=== PATIENT | male | born 1965 | race American Indian/Alaskan Native ===

== ENCOUNTER 2020-05-05 04:37 | Emergency (ER) | payer SELFPAY ==
--- NOTE | 2020-05-05 05:39 | XRay Report ---
XR chest routine 2V INDICATION / CLINICAL INFORMATION: chest pain COMPARISON: None available. FINDINGS: SUPPORT DEVICES: None. HEART / MEDIASTINUM: No significant abnormality. LUNGS / PLEURA: Lungs are clear. Costophrenic sulci are sharp. No pneumothorax. ADDITIONAL FINDINGS: No significant additional findings. IMPRESSION: 1. No acute findings. Signer Name: Justin Avendano MD Signed: 05/05/2020 5:35 AM Workstation Name: [id number]
[2020-05-05 05:43] LABS: Basophils % (Auto) 0.3 % (0.0-1.8); Eosinophils # (Auto) 0.1 K/mm3 (0.0-0.4); Hematocrit 42.7 % (35.5-45.6); Hemoglobin 14.3 gm/dl (11.8-15.2); Lymphocytes # (Auto) 2.2 K/mm3 (1.2-5.4); Lymphocytes % (Auto) 47.5 % (13.4-35.0); Mean Corpuscular HGB Conc 33 % (32-34); Mean Corpuscular Volume 94 fl (84-94); Monocytes # (Auto) 0.5 K/mm3 (0.0-0.8); Monocytes % (Auto) 11.6 % (0.0-7.3); Platelet Count 234 K/mm3 (140-440); Red Blood Count 4.55 M/mm3 (3.65-5.03); Red Cell Distribution Width 13.2 % (13.2-15.2)
[2020-05-05 06:03] LABS: Alanine Aminotransferase 45 units/L (7-56); Albumin 4.4 g/dL (3.9-5); BUN/Creatinine Ratio 11; Blood Urea Nitrogen 9 mg/dL (9-20); Calcium 8.9 mg/dL (8.4-10.2); Hemolysis Index 0
--- NOTE | 2020-05-05 08:24 | Emergency Department Report ---
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 He had a sudden onset of gas-like left chest pain. He states "it gets like that when I am stressed out.". He states that he has a chest pain "all this time". Pain radiated to his forearm. The pain lasted for several minutes. He was seated at rest when it occurred. He drove himself to the emergency department. He had nausea. He denies shortness of breath. Denies syncope. His father had history of "clogged" heart issues. Mother was healthy. Siblings are healthy. MD Complaint: chest pain -: Sudden, This morning Onset: during rest Pain Radiation: none Severity: moderate Severity scale (0 -10): 7 Quality: dull Consistency: now resolved Improves With: nothing Worsens With: nothing re: nausea Treatments Prior to Arrival: none Aspirin use within the Past 7 Days: (0) No - Related Data Allergies Allergy/AdvReac Type Severity Reaction Status Date / Time No Known Allergies Allergy Unverified 05/05/20 04:56 Heart Score - HEART Score History: Slightly suspicious EKG: Normal Age: 45-65 Risk factors: 1-2 risk factors Troponin: < normal limit HEART Score: 2 ED Review of Systems ROS: Stated complaint: CHEST PAIN,UPPER LEFT SIDE Other details as noted in HPI Comment: All other systems reviewed and negative Constitutional: denies: fever, malaise Respiratory: denies: cough, shortness of breath Cardiovascular: chest pain Gastrointestinal: nausea ED Past Medical Hx - Past Medical History Previous Medical History?: Yes Hx Diabetes: Yes (Prediabetes) - Surgical History Past Surgical History?: No - Family History Family history: vascular disease - Social History Smoking Status: Never Smoker Substance Use Type: None ED Physical Exam - General Limitations: No Limitations General appearance: alert, in no apparent distress, other (Patient is sleeping, appears comfortable, easily arousable) - Head Head exam: Present: atraumatic, normocephalic - Eye Eye exam: Present: normal appearance - ENT ENT exam: Present: mucous membranes moist - Neck Neck exam: Present: normal inspection, full ROM - Respiratory Respiratory exam: Present: normal lung sounds bilaterally. Absent: respiratory distress, wheezes, rales, rhonchi - Cardiovascular Cardiovascular Exam: Present: regular rate, normal rhythm, normal heart sounds. Absent: systolic murmur, diastolic murmur, rubs, gallop - GI/Abdominal GI/Abdominal exam: Present: soft, normal bowel sounds. Absent: distended, tenderness, guarding, rebound - Rectal Rectal exam: Present: deferred - Extremities Exam Extremities exam: Present: normal inspection - Neurological Exam Neurological exam: Present: alert, oriented X3 - Psychiatric Psychiatric exam: Present: normal affect, normal mood - Skin Skin exam: Present: warm, dry, intact, normal color. Absent: rash ED Course Vital Signs 05/05/20 05/05/20 04:50 08:24 Temperature 98.3 F Pulse Rate 69 63 Respiratory 18 12 Rate Blood Pressure 149/101 Blood Pressure 144/94 [Left] O2 Sat by Pulse 97 99 Oximetry ED Medical Decision Making - Lab Data Result diagrams: 05/05/20 05:08 05/05/20 05:08 Laboratory Results - last 24 hr 05/05/20 05/05/20 05/05/20 05:08 05:08 05:08 WBC 4.7 RBC 4.55 Hgb 14.3 Hct 42.7 MCV 94 MCH 31 MCHC 33 RDW 13.2 Plt Count 234 Lymph % (Auto) 47.5 H Hooker % (Auto) 11.6 H Eos % (Auto) 3.0 Baso % (Auto) 0.3 Lymph # (Auto) 2.2 Hooker # (Auto) 0.5 Eos # (Auto) 0.1 Baso # (Auto) 0.0 Seg Neutrophils % 37.6 L Seg Neutrophils # 1.8 Sodium 141 Potassium 3.6 Chloride 103.3 Carbon Dioxide 28 Anion Gap 13 BUN 9 Creatinine 0.8 Estimated GFR > 60 BUN/Creatinine Ratio 11 Glucose 132 H Calcium 8.9 Total Bilirubin 0.20 AST 43 H ALT 45 Alkaline Phosphatase 46 Total Creatine Kinase 769 H Troponin T < 0.010 Total Protein 7.2 Albumin 4.4 Albumin/Globulin Ratio 1.6 05/05/20 08:26 WBC RBC Hgb Hct MCV MCH MCHC RDW Plt Count Lymph % (Auto) Hooker % (Auto) Eos % (Auto) Baso % (Auto) Lymph # (Auto) Hooker # (Auto) Eos # (Auto) Baso # (Auto) Seg Neutrophils % Seg Neutrophils # Sodium Potassium Chloride Carbon Dioxide Anion Gap BUN Creatinine Estimated GFR BUN/Creatinine Ratio Glucose Calcium Total Bilirubin AST ALT Alkaline Phosphatase Total Creatine Kinase Troponin T < 0.010 Total Protein Albumin Albumin/Globulin Ratio - EKG Data -: EKG Interpreted by Me EKG shows normal: sinus rhythm, axis, intervals, QRS complexes, ST-T waves Rate: normal - EKG Data Interpretation: normal EKG 05/05/20 08:21 EKG obtained 442 EKG interpreted by me Rate 75 bpm normal sinus rhythm normal rate normal axis normal intervals no ST elevation no ST-T signs of ischemia normal EKG - Radiology Data Radiology results: report reviewed Findings Reporting MD: Justin Avendano Dictation Time: May 05, 2020 04:35 Data Integrity Analyst: Not available Program Proposals Coordinator Date: XR chest routine 2V INDICATION / CLINICAL INFORMATION: chest pain COMPARISON: None available. FINDINGS: SUPPORT DEVICES: None. HEART / MEDIASTINUM: No significant abnormality. LUNGS / PLEURA: Lungs are clear. Costophrenic sulci are sharp. No pneumothorax. ADDITIONAL FINDINGS: No significant additional findings. IMPRESSION: 1. No acute findings. Signer Name: Justin Contreras - Medical Decision Making Chest pain: Low risk for ACS, heart score 2. No indication of alternative emergent condition such as pulmonary embolism or pneumonia. Patient does not have risk factors or signs and symptoms of PE pneumonia dissection pericarditis. Troponin x2 negative. Patient referred to [facility] for outpatient cardiac evaluation. I have faxed referral request form to the vascular center. Patient strongly encouraged to initiate primary care for preventive health benefits. CBC chemistry within normal limits. Chest radiograph unremarkable. Critical care attestation.: If time is entered above; I have spent that time in minutes in the direct care of this critically ill patient, excluding procedure time. ED Disposition Clinical Impression: Chest pain, Stress at work Disposition: DC-01 TO HOME OR SELFCARE Is pt being admited?: No Does the pt Need Aspirin: No Condition: Stable Instructions: Nonspecific Chest Pain, Adult, Stress, Adult Referrals: CHIOMA BOSE MD [Staff Physician] - 3-5 Days JENSEN MARCUM MD [Staff Physician] - 3-5 Days
[2020-05-05 08:25] VITALS: BP 144/94
== END 2020-05-05 10:12 | disposition home or self-care (01) ==
LOC: ED 04:37
DX: R07.9 Chest pain, unspecified (principal); E11.9 Type 2 diabetes mellitus without complications; Z56.6 Other physical and mental strain related to work
CPT/HCPCS: 36415; 71046; 80053; 82550; 84484; 85025; 93005

== ENCOUNTER 2021-03-26 22:02 | Emergency (ER) | payer OTHER ==
[2021-03-26] MEDS ORDERED: FAMOTIDINE 20 MG TAB PO ONE (23:32)
[2021-03-26] MEDS ORDERED: ONDANSETRON 4 MG ODT TAB PO ONE (23:32)
[2021-03-26] MEDS ORDERED: ACETAMINOPHEN 500 MG TAB PO ONE (23:32)
[2021-03-26] MEDS ORDERED: ASPIRIN 325 MG TAB PO ONE (23:32)
[2021-03-26] MEDS ORDERED: ASPIRIN 81 MG TAB CHEW PO ONE (23:32)
[2021-03-26 23:50] LABS: Basophils # (Auto) 0.1 K/mm3 (0.0-0.1); Basophils % (Auto) 0.6 % (0.0-1.8); Eosinophils % (Auto) 0.5 % (0.0-4.3); Hematocrit 44.4 % (35.5-45.6); Hemoglobin 14.2 gm/dl (11.8-15.2); Lymphocytes # (Auto) 1.2 K/mm3 (1.2-5.4); Mean Corpuscular HGB Conc 32 % (32-34); Mean Corpuscular Volume 91 fl (84-94); Monocytes # (Auto) 0.8 K/mm3 (0.0-0.8); Monocytes % (Auto) 9.6 % (0.0-7.3); Platelet Count 346 K/mm3 (140-440); Red Blood Count 4.86 M/mm3 (3.65-5.03); Red Cell Distribution Width 12.9 % (13.2-15.2)
[2021-03-27 00:13] LABS: Alanine Aminotransferase 29 units/L (7-56); Albumin 4.6 g/dL (3.9-5); BUN/Creatinine Ratio 14; Blood Urea Nitrogen 11 mg/dL (9-20); Calcium 9.9 mg/dL (8.4-10.2); Hemolysis Index 32
--- NOTE | 2021-03-27 02:49 | Emergency Department Report ---
ED Abdominal Pain HPI - General Chief Complaint: Chest Pain Stated Complaint: CHEST PAINS Source: patient Mode of arrival: Ambulatory Limitations: No Limitations - History of Present Illness Initial Comments: Patient is a 55-year-old -[place] male with a history of noninsulin- dependent diabetes who presented to the ED with complaint of acute onset persistent epigastric pain that radiates to the right sided chest wall after heavy lifting 2 weeks ago. Patient states that the pain has been persistent and worse with movement, lifting or coughing. Patient states that he has been taking Tylenol for pain with no relief. Patient denies nausea, vomiting, hematemesis, cough, shortness of breath, diaphoresis, neck pain, traumatic injury, diarrhea, dysuria, urinary frequency and urgency or palpitations. MD Complaint: abdominal pain (epigastric pain that radiates to the right chest wall), other (Right-sided chest wall pain) -: Sudden, week(s) (2) Location: epigastric Radiation: chest (right chest wall) Migration to: no migration Severity: severe Severity scale (0 -10): 8 Quality: aching, sharp Consistency: constant Improves With: nothing Worsens With: movement, other (cough) Context: other (Recent heavy lifting) Associated Symptoms: denies other symptoms, anorexia. denies: vomiting, diarrhea, fever, chills, constipation, hematemesis, hematochezia, melena - Related Data Previous Rx's Medication Instructions Recorded Last Taken Type Famotidine [Pepcid] 20 mg PO BID #60 tablet 03/27/21 Unknown Rx Ibuprofen [Motrin] 600 mg PO Q8H PRN #30 tablet 03/27/21 Unknown Rx Omeprazole 40 mg PO DAILY #30 tab 03/27/21 Unknown Rx Allergies Allergy/AdvReac Type Severity Reaction Status Date / Time No Known Allergies Allergy Unverified 05/05/20 04:56 ED Review of Systems ROS: Stated complaint: CHEST PAINS Other details as noted in HPI Constitutional: denies: chills, fever Eyes: denies: eye pain, eye discharge, vision change ENT: denies: ear pain, throat pain Respiratory: denies: cough, shortness of breath, wheezing Cardiovascular: chest pain (Right-sided chest pain). denies: palpitations Endocrine: no symptoms reported Gastrointestinal: abdominal pain (Epigastric pain). denies: nausea, vomiting, diarrhea Genitourinary: denies: urgency, dysuria Musculoskeletal: denies: back pain, joint swelling, arthralgia Skin: denies: rash, lesions Neurological: denies: headache, weakness, paresthesias Psychiatric: denies: anxiety, depression Hematological/Lymphatic: denies: easy bleeding, easy bruising ED Past Medical Hx - Past Medical History Previous Medical History?: Yes Hx Diabetes: Yes (Prediabetes) - Surgical History Past Surgical History?: No - Social History Smoking Status: Never Smoker Substance Use Type: None - Medications Home Medications: Home Medications Medication Instructions Recorded Confirmed Last Taken Type Famotidine [Pepcid] 20 mg PO BID #60 tablet 03/27/21 Unknown Rx Ibuprofen [Motrin] 600 mg PO Q8H PRN #30 tablet 03/27/21 Unknown Rx Omeprazole 40 mg PO DAILY #30 tab 03/27/21 Unknown Rx ED Physical Exam - General Limitations: No Limitations General appearance: alert, in no apparent distress - Head Head exam: Present: atraumatic, normocephalic, normal inspection - Eye Eye exam: Present: normal appearance, PERRL, EOMI Pupils: Present: normal accommodation - ENT ENT exam: Present: normal exam, normal orophraynx, mucous membranes moist, TM's normal bilaterally, normal external ear exam - Neck Neck exam: Present: normal inspection, tenderness, full ROM - Respiratory Respiratory exam: Present: normal lung sounds bilaterally. Absent: respiratory distress, wheezes, rales, rhonchi, chest wall tenderness, accessory muscle use, decreased breath sounds, prolonged expiratory - Cardiovascular Cardiovascular Exam: Present: normal rhythm, tachycardia, normal heart sounds. Absent: systolic murmur, diastolic murmur, rubs, gallop - GI/Abdominal GI/Abdominal exam: Present: soft, normal bowel sounds. Absent: tenderness, guarding, rebound, hyperactive bowel sounds, hypoactive bowel sounds, organomegaly - Extremities Exam Extremities exam: Present: normal inspection, full ROM, normal capillary refill - Back Exam Back exam: Present: normal inspection, full ROM. Absent: tenderness, CVA tenderness (R), CVA tenderness (L), muscle spasm, paraspinal tenderness, vertebral tenderness - Neurological Exam Neurological exam: Present: alert, oriented X3, CN II-XII intact, normal gait, reflexes normal - Psychiatric Psychiatric exam: Present: normal affect, normal mood - Skin Skin exam: Present: warm, dry, intact, normal color. Absent: rash ED Course Vital Signs 03/26/21 03/26/21 03/27/21 22:20 23:49 04:04 Temperature 100.5 F H 99.4 F Pulse Rate 104 H 90 Respiratory 18 16 16 Rate Blood Pressure 140/94 148/84 [Left] O2 Sat by Pulse 98 99 Oximetry ED Medical Decision Making - Lab Data Result diagrams: 03/26/21 23:35 03/26/21 23:35 - Radiology Data Radiology results: report reviewed, image reviewed - Medical Decision Making This is a 55-year-old -[place] male with a history of noninsulin- dependent diabetes who presented to the ED with complaint of acute onset persistent epigastric pain that radiates to the right sided chest wall after heavy lifting 2 weeks ago. Patient states that the pain has been persistent and worse with movement, lifting or coughing. Patient states that he has been taking Tylenol for pain with no relief. In the ED, patient is alert and oriented x3 and is not in any distress but slightly tachycardic and febrile in triage. Patient was treated for pain, lab test results were reviewed and are all nonactionable. EKG shows normal sinus rhythm with a ventricular rate of [address] or T wave abnormalities. Chest x-ray showed no acute cardiopulmonary abnormalities or pneumonitis. Patient's heart score is 2, for his age and one risk factor of diabetes. On reevaluation, patient fever resolved and tachycardia also resolved. Patient symptoms are likely due to previous heavy lifting, or GERD complications. Patient was therefore discharged home and advised to follow-up with his primary care physician in 7 to 10 days for reevaluation. Patient was advised return to the ED immediately if symptoms get worse. - Differential Diagnosis GERD; muscle strain; costochondritis; ACS; pneumonia; Critical care attestation.: If time is entered above; I have spent that time in minutes in the direct care of this critically ill patient, excluding procedure time. ED Disposition Clinical Impression: Nonspecific chest pain, Acute costochondritis, Muscle strain of anterior chest wall GERD (gastroesophageal reflux disease) Qualifiers: Esophagitis presence: esophagitis presence not specified Qualified Code(s): K21.9 - Gastro-esophageal reflux disease without esophagitis Disposition: 01 HOME / SELF CARE / HOMELESS Is pt being admited?: No Does the pt Need Aspirin: No Condition: Stable Instructions: Costochondritis, [id number], Chest Wall Pain, [id number], Nonspecific Chest Pain, Adult, [id number], Gastroesophageal Reflux Disease, Adult, [id number] Additional Instructions: All lab test results were reviewed and are all nonactionable. Chest x-ray showed no acute cardiopulmonary abnormalities or pneumonitis. Your symptoms are likely due to muscle strain, muscle spasm, costochondritis or GERD. Therefore take medications with food, drink plenty of fluids and follow-up with your primary care physician in 7 to 10 days for reevaluation. Return to the ED immediately if symptoms get worse. Prescriptions: Ibuprofen [Motrin] 600 mg PO Q8H PRN #30 tablet PRN Reason: Pain Omeprazole 40 mg PO DAILY #30 tab Famotidine [Pepcid] 20 mg PO BID #60 tablet Referrals: [facility] [Provider Group] - 3-5 Days Time of Disposition: 02:50 Print Language: GUAMANIAN
[2021-03-27 04:41] VITALS: BP 148/84
--- NOTE | 2021-03-28 14:28 | Electrocardiograph Report ---
[facility] Test Date: 2021-03-26 Test Time: 22:19:41 Pat Name: BRODIE LION Department: Room: Gender: M Gate Attendant: MIRELLA : 1965 Requested By: ROSA CELSETE Order Number: [id number] Reading MD: Mir Mejia Measurements Intervals Phelps Rate: 96 P: -11 WA: 136 QRS: -9 QRSD: 105 T: -10 QT: 327 QTc: 414 Interpretive Statements Sinus rhythm No previous ECG available for comparison Electronically Signed On 03-28-2021 14:27:56 EST by Mir Mejia
== END 2021-03-27 04:05 | disposition home or self-care (01) ==
LOC: ED 22:02
DX: S29.011A Strain of muscle and tendon of front wall of thorax, initial encounter (principal); R07.9 Chest pain, unspecified; M94.0 Chondrocostal junction syndrome [Tietze]; K21.9 Gastro-esophageal reflux disease without esophagitis; E11.9 Type 2 diabetes mellitus without complications; X50.0XXA Overexertion from strenuous movement or load, initial encounter; Y93.89 Activity, other specified; Y92.89 Other specified places as the place of occurrence of the external cause; Y99.8 Other external cause status
CPT/HCPCS: 36415; 71045; 80053; 83690; 84484; 85025; 93005; 93010; 99284; J3490; Q0162